=== PATIENT | male | born 1965 | race Caucasian/White ===

== ENCOUNTER 2020-03-07 09:24 | Day surgery (SDC) | payer BC, SELFPAY ==
[2020-02-28 19:33] VITALS: BMI 33.3
--- NOTE | 2020-03-06 08:58 | P.CONAN_ITS ---
Documented by User: Manjula Edge 03/06/20 14:53 HPI - Anesthesia Eval Consult details Narrative: 54yo M for Upper Endoscopy and Colonoscopy [facility] Past Medical History Medical History Anxiety Back pain CAD (coronary artery disease) GERD (gastroesophageal reflux disease) HTN (hypertension) Hypercholesteremia Migraine Myocardial bridge Smoker Surgical History Surgical History History of appendectomy History of cardiac cath History of cholecystectomy Status post right foot surgery Social History Social History Smoking Status: Current every day smoker Cigarettes Per Day: 7 Years Smoked: 35 Smoked in Last 30 Days: Yes Patient Interested in Nicotine Replacement: No Patient Given Instructions on How to Stop Smoking: No Use of substances other than those prescribed or required for medical reasons: No Advance Directives: Yes Advance Directives Information Provided: No (will bring in a copy) Advance Directives on File: Yes Advance Directives Date on File: 01/02/20 Narrative Narrative: Multiple ED visits ([facility]) in 12/2019 and 01/2020 with CP radiating down left arm. EKG's and trops were negative. ACS r/o each time. Cath done 01/28/20. See exam narrative Meds Allergies Allergy/AdvReac Type Severity Reaction Status Date / Time No Known Allergies Allergy Verified 02/28/20 19:51 Home Medications Medication Instructions Recorded Confirmed Type amlodipine 10 mg PO DAILY 02/28/20 02/28/20 History aspirin 81 mg PO DAILY 02/28/20 02/28/20 History atorvastatin 80 mg PO DAILY 02/28/20 02/28/20 History diltiazem HCl 180 mg PO DAILY 02/28/20 02/28/20 History lorazepam 1 mg PO TID PRN 02/28/20 02/28/20 History metoprolol tartrate 25 mg PO BID 02/28/20 02/28/20 History nitroglycerin 1 patch TRANSDERMAL DAILY PRN 02/28/20 02/28/20 History omeprazole 40 mg PO DAILY 02/28/20 02/28/20 History Exam Exam Date and Time: March 06, 2020 0858 Height,Weight and Vital Signs: Height 6 ft 2 in Weight 117.934 kg Narrative Narrative: Cardiac cath 01/28/2020: No obstructive CAD, mild bridging in the mid LAD noted. JAE-3 flow through vessel. ECHO 01/28/2020: nml exam EKG 01/2020: NSR Assessment and Plan Assessment Anesthesia Assessment: Chart Reviewed Documented by User: Dana Houston 03/07/20 10:33 [facility] Past Medical History Medical History Anxiety Back pain CAD (coronary artery disease) GERD (gastroesophageal reflux disease) HTN (hypertension) Hypercholesteremia Migraine Myocardial bridge Smoker Surgical History Surgical History History of appendectomy History of cardiac cath History of cholecystectomy Status post right foot surgery Social History Social History Smoking Status: Current every day smoker Cigarettes Per Day: 7 Years Smoked: 35 Smoked in Last 30 Days: Yes Patient Interested in Nicotine Replacement: No Patient Given Instructions on How to Stop Smoking: No Use of substances other than those prescribed or required for medical reasons: No Advance Directives: Yes Advance Directives Information Provided: No (will bring in a copy) Advance Directives on File: Yes Advance Directives Date on File: 01/02/20 Meds Allergies Allergy/AdvReac Type Severity Reaction Status Date / Time No Known Allergies Allergy Verified 02/28/20 19:51 Home Medications Medication Instructions Recorded Confirmed Type amlodipine 10 mg PO DAILY 02/28/20 02/28/20 History aspirin 81 mg PO DAILY 02/28/20 02/28/20 History atorvastatin 80 mg PO DAILY 02/28/20 02/28/20 History diltiazem HCl 180 mg PO DAILY 02/28/20 02/28/20 History lorazepam 1 mg PO TID PRN 02/28/20 02/28/20 History metoprolol tartrate 25 mg PO BID 02/28/20 02/28/20 History nitroglycerin 1 patch TRANSDERMAL DAILY PRN 02/28/20 02/28/20 History omeprazole 40 mg PO DAILY 02/28/20 02/28/20 History Exam Airway Mallampati Class: II TM Dist: >3cm Neck ROM: Full Loose/Missing/Broken Teeth: No Heart: RRR Lungs: CTA Assessment and Plan Assessment Anesthesia Assessment: Anesthesia Plan Discussed and Chart Reviewed Final Anesthetic Review NPO: Yes ASA Class: III Final Preanesthetic Review: Meds/Allgs Chart Reviewed, Consent Obtained/Reviewed and Anes Risks/Benef Reviewed Patient Risk: Intermediate Procedure Risk: Intermediate Anesthetic Plan Anesthetic Plan: MAC: Disposition: Standard PACU
[2020-03-07 09:54] VITALS: BP 131/77; PULSE 66; RESP 16; TEMP 36.3; O2SAT 97
[2020-03-07] MEDS: Lactated Ringers 1,000 ML 100 ML IVCONT (10:02)
[2020-03-07 11:07] VITALS: BP 117/72; PULSE 65; RESP 18; TEMP 36.4; O2SAT 100
--- NOTE | 2020-03-07 11:11 | MHC.SHP ---
Pre-Procedural Eval Section A The patient is an INPATIENT: No Changes since office visit: No Cold of Flu in the past 2 weeks, No New Medical Problems, No Changes in Medication and No Patient answered all questions The History & Physical has been completed within 30 days and I have reviewed it.: Yes Section B Chief Complaint: reflux,abdominal pain Allergies: Allergies Allergy/AdvReac Type Severity Reaction Status Date / Time No Known Allergies Allergy Verified 02/28/20 19:51 Plan I have reviewed the history and physical and performed a pertinent physical examination on my patient. No changes have occurred unless specified.
--- NOTE | 2020-03-07 11:12 | PM.OP ---
Brief Operative Note Date of Service: 03/07/20 Pre-op diagnosis: gerd, abd pain Post-op diagnosis: same (colon polyp) Procedure: egd,colonoscopy Surgeon: Byron Morales Anesthesia: MAC Estimated blood loss (mL): 2 Pathology: other (antral, egj biopises,cecal polyp) Condition: stable Disposition: PACU
[2020-03-07 11:22] VITALS: BP 130/74; PULSE 64; RESP 18; TEMP 36.4; O2SAT 96
--- NOTE | 2020-03-07 11:36 | OP_ITS ---
SURGEON: Byron Morales MD INDICATIONS: 1. Gastroesophageal reflux disease. 2. Abdominal pain. PREOPERATIVE DIAGNOSIS: POSTOPERATIVE DIAGNOSIS: PROCEDURE PERFORMED: 1. Upper endoscopy with biopsy. 2. Colonoscopy to the terminal ileum with snare polypectomy. ESTIMATED BLOOD LOSS: COMPLICATIONS: ANESTHESIA: ASSISTANTS: SPECIMENS: MEDICATIONS: Monitored anesthesia care. DESCRIPTION OF PROCEDURE: History and physical performed. The risks and benefits of the procedure were explained to the patient. Informed consent was obtained. The patient was placed in the left lateral decubitus position. The Olympus video gastroscope was introduced into the esophagus, stomach, and duodenum. Examination was performed and the scope was removed. He was repositioned for colonoscopy. A digital rectal exam was performed and was found to be normal. The Olympus pediatric video colonoscope was introduced into the rectum and advanced to the cecum without difficulty. The cecum was identified by transillumination, palpation, and identification of ileocecal valve. Examination was performed and the scope was removed. He tolerated both procedures well and was returned to recovery area in stable condition. FINDINGS: UPPER ENDOSCOPY: Esophagus: The esophagus was normal. There was no esophagitis. Biopsies were obtained from the EG junction, which was slightly irregular. Stomach: The stomach showed no evidence of masses, ulcers, or polyps. Antral biopsies were obtained to rule out H pylori. Duodenum: The bulb and second portion were normal. COLONOSCOPY: The terminal ileum was briefly examined and appeared normal. The visualized colonic mucosa was normal. In the cecum, was a 6 mm polyp that was removed with a snare and recovered via suction. No other polyps were identified. The quality of the prep was good. The colon was redundant. Retroflexed examination showed small internal hemorrhoids. IMPRESSION: 1. Gastroesophageal reflux disease. 2. Colon polyp. RECOMMENDATION: Follow up the biopsy results. MD REBEKAH Raygoza/TOÑO / [id number]
== END 2020-03-07 12:19 | disposition home or self-care (01) ==
PROVIDERS: PCP Family Medicine; Visit Provider Internal Medicine Gastroenterology
PROC: (CPT 45385; principal; 2020-03-07 10:30)
DX: R10.84 Generalized abdominal pain (principal); R14.0 Abdominal distension (gaseous); D12.0 Benign neoplasm of cecum; K64.8 Other hemorrhoids; K21.9 Gastro-esophageal reflux disease without esophagitis; I10 Essential (primary) hypertension; R73.03 Prediabetes; Z90.49 Acquired absence of other specified parts of digestive tract; F17.210 Nicotine dependence, cigarettes, uncomplicated; Z79.899 Other long term (current) drug therapy; Z79.82 Long term (current) use of aspirin
CPT/HCPCS: 45385; 43239; 88305; 88342